=== PATIENT | male | born 1950 | race Caucasian/White ===

== ENCOUNTER 2024-02-23 02:02 | Emergency (ER) | payer OTHER, SELFPAY ==
[2024-02-23 04:12] VITALS: BMI 33.0
[2024-02-23 04:15] VITALS: BP 129/66
--- NOTE | 2024-02-23 04:28 | ED.GENMED ---
History of Present Illness
<ELAYNE Angel - Last Filed: 02/23/24 21:43>
General
Chief Complaint: Urinary Symptoms
Time Seen by Provider: 02/23/24 04:06
History of Present Illness
History of Present Illness:
A 74 yo male presents with a PMH of BPH, HTN, osteoarthritis to the ED for urinary retention x 2.5 day. He stated that he tried taking extra doses of tamsulosin to help with the urinary retention, but his urine stream has progressively slowed and
is now absent and is now causing suprapubic pain and distention. He describes a previous episode of urinary retention to which his urologist removed more than 2 L of urine via Matamoros catheterization. He denies CP, N/V/D/C, SOB, abdominal pain, PRATHER,
dizziness. He states that he has a prior history of BPH which is well controlled on his current medication. Osteoarthritis which is well controlled and HTN which is well controlled.
Past History
<ELAYNE Angel - Last Filed: 02/23/24 21:43>
Past History
ED Past Medical History: Cancer (Prostate), HTN and Other (Low back pain, Hematuria. 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 ); Negative Asthma, Hypercholesterolemia or NIDDM
ED Past Surgical History: Brain (1986 brain surgery ), Orthopedic (Back surgery with rods and screws, bilateral knee replacements, Left and right shoulder surgery, Left shoulder replacement) and Urological (Prostate biopsy, Lazar surgery)
Social History
Tobacco: Non-smoker (Cigar)
Alcohol: None
Drug: None
Personal:
Living: with family
Employment: Employed
Review of Systems
<ELAYNE Angel - Last Filed: 02/23/24 21:43>
Review of Systems
Constitutional: Denies fever, fatigue or chills
Respiratory: Denies cough
Phy Exam
<ELAYNE Angel - Last Filed: 02/23/24 21:43>
General Physical Exam
General Presentation: well appearing and no apparent distress
General age: appears stated age
General Skin: warm and dry
General Habitus: obese
General Mental: alert
Cardiovascular Exam
Cardiovascular Exam: regular rate/rhythm and normal peripheral pulses
Pulmonary Exam
Pulmonary Exam: lungs clear, no respiratory distress and chest non tender
Gastrointestinal Exam
Gastrointestinal Exam: normal bowel sounds, non tender and distended (epigastric distention and hard)
Palpation: left upper quadrant: No tenderness, left lower quadrant: No tenderness, right upper quadrant: No tenderness, right lower quadrant: No tenderness and generalized: No tenderness
Auscultation of Abdomen: normal
Genitourinary Exam Male
Exam Male: other (suprapubic tenderness relieved with matamoros catheterization. Initial output 600ml)
Neurological Exam
Neurological Exam: alert and oriented x3
Musculoskeletal Exam
Musculoskeletal Exam: neuro vasc intact
Skin Exam
Skin Exam: normal color, warm/dry and no rash
Course
<Ino Mclean [facility] - Last Filed: 02/23/24 21:43>
Orders/Labs/Results
Orders:
Orders
02/23/24 06:50
Matamoros Placement- Treatment ONCE
Reason for insertion: Outlet obstruction
02/23/24 07:02
CBI- Treatment PRN
Solution: ns
Irrigate to Clear?: Yes
Vital Signs
Initial and Last Documented VS:
Initial Vital Signs
BP
129/66
02/23/24 04:15
Last Documented Vital Signs
Temp Pulse Resp BP Pulse Ox
98.5 F 57 16 135/72 98
02/23/24 07:13 02/23/24 10:01 02/23/24 10:01 02/23/24 09:50 02/23/24 09:51
<Roly Leo, - Last Filed: 02/23/24 09:33>
Orders/Labs/Results
Orders:
Orders
02/23/24 06:50
Matamoros Placement- Treatment ONCE
Reason for insertion: Outlet obstruction
02/23/24 07:02
CBI- Treatment PRN
Solution: ns
Irrigate to Clear?: Yes
Vital Signs
Initial and Last Documented VS:
Initial Vital Signs
BP
129/66
02/23/24 04:15
Last Documented Vital Signs
Temp Pulse Resp BP Pulse Ox
98.5 F 57 16 135/72 98
02/23/24 07:13 02/23/24 10:01 02/23/24 10:01 02/23/24 09:50 02/23/24 09:51
<ELAYNE Angel - Last Filed: 02/23/24 21:43>
*Critical Care Note
Total Time (30-74mins, 75-104mins- exclusive of procedures): Not Applicable
<Roly Leo, - Last Filed: 02/23/24 09:33>
Update Note
Update Note:
9:30 AM care of patient was transitioned pending urology evaluation. Urology did evaluate at bedside and will follow-up as an outpatient. Plan per urology is discharged with Matamoros catheter
ED Attending Note
<ELAYNE Angel - Last Filed: 02/23/24 21:43>
-
Portions of this chart may have been created with voice recognition software.� Occasional wrong word or��sound alike� substitutions may have occurred due to the inherent limitations of voice recognition software.
Discharge Plan
Departure
Patient Disposition: Home (Routine Discharge)
Date of Disposition: 02/23/24
Time of Disposition: 09:32
Patient with high blood pressure during this ER visit?: No
Discharge Problem:
Hematuria
Instructions: How to Care for Your Matamoros Catheter, Male
Prescriptions:
No Action
Centrum Silver Men 1 EACH tablet
1 ea PO DAILY
lisinopril 20 MG tablet
20 mg PO DAILY Qty: 1 0RF
Rx Instructions:
HOLD if systolic blood pressure <130 while on post-operative pain meds
verapamil 240 MG tablet extended release
240 mg PO DAILY Qty: 1 0RF
Rx Instructions:
HOLD if systolic blood pressure <130 while on post-operative pain meds.
naproxen sodium [Aleve] 220 mg Tablet
220 mg PO DAILY
tadalafil 20 mg Tablet
20 mg PO DAILYPRN PRN (Reason: ed)
tamsulosin 0.4 mg capsule
0.4 mg PO DAILY
Referrals:
Gurjit Snyder MD [Active] -
Earnest Tomas DO [Family Provider] -
Activity Restrictions/Additional Instructions:
Please return for any worsening symptoms.
You may return at any time if you have further concerns.
Please follow up with the urologist.
Thank you for choosing [facility].
Interventions
Interventions:
*Risk Screen - Suicide Last Done: 02/23/24 04:18
*General Assessment Last Done: 02/23/24 04:18
*Neglect/Abuse Screening Last Done: 02/23/24 04:18
ED- Fall Risk Assessment Last Done: 02/23/24 04:12
*ED COVID-19 Vaccine History Last Done: 02/23/24 04:16
*Nursing Disposition Last Done: 02/23/24 10:01
ED-Male Genitourinary Assessment Last Done: 02/23/24 04:12
Discharge Date and Time
Discharge Date/Time: 02/23/24 10:02
Print Language: HUNGARIAN
--- NOTE | 2024-02-23 04:33 | DOWNTIME ---
There was a [employer] Experimental Physicist Downtime on 02/23/2024 from 0100 to 02/23/2024 at 0355. Downtime documentation of patient's care, including medication administrations, has been reconciled in the electronic record per guidelines. Refer to the
patient's paper chart under the miscellaneous tab to see printed paper medication records and downtime forms.
[2024-02-23 05:00] VITALS: BP 128/62
[2024-02-23 06:00] VITALS: BP 114/47
[2024-02-23 09:50] VITALS: BP 135/72
== END 2024-02-23 10:02 | disposition home or self-care (01) ==
LOC: EMR 02:02
PROVIDERS: EMERGENCY PHYSICIAN Student in an Organized Health Care Education/Training Program; FAMILY PHYSICIAN Internal Medicine
DX: R31.9 Hematuria, unspecified (principal); N40.1 Benign prostatic hyperplasia with lower urinary tract symptoms; R33.8 Other retention of urine; I10 Essential (primary) hypertension; Z85.46 Personal history of malignant neoplasm of prostate; Z86.73 Personal history of transient ischemic attack (TIA), and cerebral infarction without residual deficits
CPT/HCPCS: 51702; 99283

== ENCOUNTER 2024-02-27 07:53 | Emergency (ER) | payer OTHER, SELFPAY ==
[2024-02-27 07:54] VITALS: BP 165/120
--- NOTE | 2024-02-27 08:36 | ED.GENMED ---
History of Present Illness
General
Chief Complaint: Urinary Symptoms
Source: patient and records
Time Seen by Provider: 02/27/24 08:07
History of Present Illness
History of Present Illness:
74-year-old male with past medical history of BPH and urinary retention, had De Souza catheter removed by urology earlier this week, presenting back to the emergency department after being unable to urinate since Wednesday afternoon. Patient noticing
significant lower abdominal pain/discomfort and urge to urinate but unable to do so. Patient states that he is scheduled to have an MRI on the and then undergo likely procedure with urology due to the enlarged prostate. Patient denies any
fevers, chills, rigors, back or flank pain or nausea/vomiting. No other concerns
Past History
Past History
ED Past Medical History: Cancer (Prostate), HTN and Other (Low back pain, Hematuria. 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 ); Negative Asthma, Hypercholesterolemia or NIDDM
ED Past Surgical History: Brain (1986 brain surgery ), Orthopedic (Back surgery with rods and screws, bilateral knee replacements, Left and right shoulder surgery, Left shoulder replacement) and Urological (Prostate biopsy, Lazar surgery)
Social History
Tobacco: Non-smoker (Cigar)
Alcohol: None
Drug: None
Personal:
Living: with family
Employment: Employed
Review of Systems
Review of Systems
All Other Systems: ROS reviewed and negative except as documented in HPI and ROS
Phy Exam
Physical Exam
Physical Exam:
GENERAL: Alert , shaking, appears very uncomfortable
EYE: conjunctiva clear
Head: Normocephalic atraumatic
NECK: Supple,
ENT: mmm.
LUNGS: no acute respiratory distress
ABDOMEN: firm/distended suprapubic region
NEUROLOGICAL: Alert and oriented
SKIN: Warm and dry, skin intact.
MUSCULOSKELETAL: well perfused.
PSYCH: Normal and appropriate interaction.
Scores
Heart Failure Risk
Heart Failure Risk Score: Not Applicable
Heart Score for Chest Pain Patients
STEMI patient?: Not applicable
Withdrawal Assessment of Alcohol
Withdrawal Assessment Completed?: Not applicable
Course
Orders/Labs/Results
Orders:
Orders
02/27/24 08:07
De Souza Placement- Treatment ONCE
Reason for insertion: Acute Retention
02/27/24 08:40
Urinalysis Reflex To Culture Urgent
Date Specimen was Collected: 02/27/24
Time Specimen was Collected: 08:28
Urine Microscopic Reflex Cult Urgent
Urine Culture Urgent
JEY Source: U
Specimen Description:
Date Specimen was Collected: 02/27/24
Time Specimen was Collected: 08:28
02/27/24 08:43
Basic Metabolic Panel Urgent
02/27/24 10:55
Complete Blood Count/With Diff Urgent
Abnormal Lab Results
02/27/24 02/27/24
08:40 08:43
Chloride 109 H mmol/L
(98-107)
Carbon Dioxide 15 L mmol/L
(22-30)
BUN 41 H mg/dl
(9-20)
Glucose 103 H mg/dl
(70-99)
Ur Occult Blood Reflex 1+ A
(Negative)
Leukocyte Esterase Rfl 2+ A
(Negative)
Urine RBC 11-15 A /HPF
(0-2)
Urine WBC (Reflex) 30-40 A /HPF
(0-5)
Urine Bacteria (Reflex) Moderate A
(Negative)
02/27/24 08:43
Vital Signs
Initial and Last Documented VS:
Initial Vital Signs
Temp Pulse Resp BP Pulse Ox
97.9 F 60 22 165/120 94
02/27/24 07:54 02/27/24 07:54 02/27/24 07:54 02/27/24 07:54 02/27/24 07:54
Last Documented Vital Signs
Temp Pulse Resp BP Pulse Ox
97.9 F 55 16 132/67 94
02/27/24 07:54 02/27/24 09:10 02/27/24 09:10 02/27/24 09:10 02/27/24 07:54
MDM/Problems Addressed
Differential Diagnosis Includes:
Urinary retention secondary to BPH, urinary tract infection, acute kidney injury
MDM/Problems Addressed:
74-year-old male presenting emergency department for evaluation of urinary retention. History of similar requiring urinary De Souza catheter. On exam here today patient is significantly uncomfortable, unable to urinate over the last 36+ hours and
symptoms seem to be most suggestive of urinary retention. Bladder scan done which shows greater than 700mL. Will place De Souza catheter. Will discuss with urology with anticipated discharge home follow-up.
Chronic conditions affecting care: Other (BPH)
Acute Exacerbation and/or Progression of Chronic Illness: Other (BPH)
*Pulse Oximetry
Patient hypoxic: no
*Critical Care Note
Total Time (30-74mins, 75-104mins- exclusive of procedures): Not Applicable
Data Reviewed
Review of Other/Old Records Reveals: Labs and Records
Patient Management
Discussion with other providers: Template Inspector
Escalation/DeEscalation of care consider admission/obs:
Urology team made aware. Patient to have MRI wednesday as scheduled and urology will continue follow up. Stable for d/c home. Aware of return precautions
ED Attending Note
-
Portions of this chart may have been created with voice recognition software.� Occasional wrong word or��sound alike� substitutions may have occurred due to the inherent limitations of voice recognition software.
Discharge Plan
Departure
Patient Disposition: Home (Routine Discharge)
Date of Disposition: 02/27/24
Time of Disposition: 10:42
Patient with high blood pressure during this ER visit?: Yes
Discharge Problem:
Acute urinary retention
Instructions: Urinary retention - Discharge instructions
Prescriptions:
No Action
Centrum Silver Men 1 EACH tablet
1 ea PO DAILY
lisinopril 20 MG tablet
20 mg PO DAILY Qty: 1 0RF
Rx Instructions:
HOLD if systolic blood pressure <130 while on post-operative pain meds
verapamil 240 MG tablet extended release
240 mg PO DAILY Qty: 1 0RF
Rx Instructions:
HOLD if systolic blood pressure <130 while on post-operative pain meds.
naproxen sodium [Aleve] 220 mg Tablet
220 mg PO DAILY
tadalafil 20 mg Tablet
20 mg PO DAILYPRN PRN (Reason: ed)
tamsulosin 0.4 mg capsule
0.4 mg PO DAILY
Referrals:
Lucian Abad MD [Active] -
Earnest Tomas DO [Family Provider] -
Interventions
Interventions:
ED-Male Genitourinary Assessment Last Done: 02/27/24 09:11
Discharge Date and Time
Print Language: MONGOLIAN
[2024-02-27 09:10] VITALS: BP 132/67
[2024-02-27 09:26] LABS: Urine Albumin Trace (Neg - Trace); Urine Bilirubin Negative (Negative); Urine Character Slightly Cloudy (Clear); Urine Color Yellow; Urine Glucose Negative (Negative); Urine Ketone Negative (Negative); Urine Leukocyte 2+ (Negative); Urine Nitrite Negative (Negative); Urine Occult Blood 1+ (Negative); Urine Urobilinogen Negative (Neg - 1+)
[2024-02-27 09:58] LABS: Urine Mucus Few
[2024-02-27 10:00] LABS: Urine Bacteria Moderate (Negative); Urine White Cell 30-40 /HPF (0-5)
[2024-02-27 10:44] LABS: Blood Urea Nitrogen 41 mg/dl (9-20); Calcium 9.4 mg/dl (8.4-10.2); Carbon Dioxide 15 mmol/L (22-30); Chloride 109 mmol/L (98-107); Glucose 103 mg/dl (70-99); Potassium 4.8 mmol/L (3.5-5.1); Sodium 137 mmol/L (135-145); eGFR > 60.00
[2024-02-27 11:46] VITALS: BP 136/74
== END 2024-02-27 11:50 | disposition home or self-care (01) ==
LOC: EMR 07:53
PROVIDERS: Physician Assistant Medical; EMERGENCY PHYSICIAN Student in an Organized Health Care Education/Training Program; FAMILY PHYSICIAN Internal Medicine
DX: N40.1 Benign prostatic hyperplasia with lower urinary tract symptoms (principal); R33.8 Other retention of urine; I10 Essential (primary) hypertension; Z86.73 Personal history of transient ischemic attack (TIA), and cerebral infarction without residual deficits; Z85.46 Personal history of malignant neoplasm of prostate
CPT/HCPCS: 51702; 99283; 80048; 81003; 81015; 87086; 87147; 87186

== ENCOUNTER → 2024-03-01 06:13 | Emergency (ER) | payer OTHER, SELFPAY ==
[2024-03-01 06:17] VITALS: BP 150/64
--- NOTE | 2024-03-01 07:27 | ED.GENMED ---
History of Present Illness
General
Chief Complaint: Catheter/Tube Problem
Source: patient
Exam Limitations: none
Time Seen by Provider: 03/01/24 07:26
Nursing documentation reviewed up to this point in time: agreed with
History of Present Illness
History of Present Illness:
Patient is a 74-year-old male with past medical history of BPH urinary retention presents to the ER for evaluation of blood leaking around De Souza catheter. Patient was seen here on February 26 several days ago and had De Souza inserted and this morning
reports urine started coming out of the penis around the tube along with blood but was not getting to the collection bag. He does feel some pressure over his bladder. He denies any recent nausea vomiting fever chills. He is being followed by
[facility] of urology and presently is on finasteride and oxybutynin.
Past History
Past History
ED Past Medical History: Cancer (Prostate), HTN and Other (Low back pain, Hematuria. 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 ); Negative Asthma, Hypercholesterolemia or NIDDM
ED Past Surgical History: Brain (1986 brain surgery ), Orthopedic (Back surgery with rods and screws, bilateral knee replacements, Left and right shoulder surgery, Left shoulder replacement) and Urological (Prostate biopsy, Lazar surgery)
Social History
Tobacco: Non-smoker (Cigar)
Alcohol: None
Drug: None
Personal:
Living: with family
Employment: Employed
Review of Systems
Review of Systems
Allergies reviewed?: Yes
All Other Systems: ROS reviewed and negative except as documented in HPI and ROS
Constitutional: Reports no symptoms; Denies fever, fatigue or chills
Respiratory: Reports no symptoms
Cardiac: Reports no symptoms
ABD/GI: Reports other (pressure over bladder lower abd region )
: Reports other (De Souza catheter not draining noticing urine and blood tinged urine around tubing)
Musculoskeletal: Reports back pain (mild lower back discomfort )
Skin: Reports no symptoms
Neurological: Reports no symptoms
Psychiatric: Reports no symptoms
Phy Exam
General Physical Exam
General Presentation: no apparent distress
General age: appears stated age
General Skin: warm and dry
General Habitus: normal
General Mental: alert
General Hydration: appears well hydrated
Gastrointestinal Exam
Gastrointestinal Exam: soft and other (+ suprapubic tenderness )
Neurological Exam
Neurological Exam: alert and oriented x3
Musculoskeletal Exam
Musculoskeletal Exam: full ROM
Skin Exam
Skin Exam: normal color and warm/dry
Psychiatric Exam
Psychiatric Exam: normal mood/affect
Course
Orders/Labs/Results
Orders:
Orders
03/01/24 09:26
UA Reflex to Culture [Urinalysis Reflex To Culture] Urgent
Date Specimen was Collected: 03/01/24
Time Specimen was Collected: 09:25
Urine Microscopic Reflex Cult Urgent
Abnormal Lab Results
03/01/24
09:26
Ur Occult Blood Reflex 4+ A
(Negative)
Leukocyte Esterase Rfl Trace A
(Negative)
Urine RBC 21-25 A /HPF
(0-2)
Vital Signs
Initial and Last Documented VS:
Initial Vital Signs
Temp Pulse Resp BP Pulse Ox
98.9 F 70 22 150/64 98
03/01/24 06:17 03/01/24 06:17 03/01/24 06:17 03/01/24 06:17 03/01/24 06:17
Last Documented Vital Signs
Temp Pulse Resp BP Pulse Ox
98.9 F 76 18 148/74 98
03/01/24 06:17 03/01/24 09:00 03/01/24 09:00 03/01/24 09:00 03/01/24 09:00
MDM/Problems Addressed
Differential Diagnosis Includes:
not limited to: UTI, urinary retention De Souza catheter complication
MDM/Problems Addressed:
Patient presented with De Souaz catheter not properly draining.
Bladder scan shows 109 ml patient not retaining. Nurse irrigated catheter abdomen De Souza catheter has been draining normally since then. Blood in ua likely mild irritation no uti. to f/u with his urologist.
*Pulse Oximetry
Patient hypoxic: no
*Critical Care Note
Total Time (30-74mins, 75-104mins- exclusive of procedures): Not Applicable
ED Attending Note
-
Portions of this chart may have been created with voice recognition software.� Occasional wrong word or��sound alike� substitutions may have occurred due to the inherent limitations of voice recognition software.
Discharge Plan
Departure
Patient Disposition: Home (Routine Discharge)
Date of Disposition: 03/01/24
Time of Disposition: 10:49
Patient with high blood pressure during this ER visit?: Yes
Condition: Fair
Covid-19: Not Applicable
Discharge Problem:
Complication of De Souza catheter
Instructions: How to Care for Your De Souza Catheter, Male
Prescriptions:
No Action
Centrum Silver Men 1 EACH tablet
1 ea PO DAILY
lisinopril 20 MG tablet
20 mg PO DAILY Qty: 1 0RF
Rx Instructions:
HOLD if systolic blood pressure <130 while on post-operative pain meds
verapamil 240 MG tablet extended release
240 mg PO DAILY Qty: 1 0RF
Rx Instructions:
HOLD if systolic blood pressure <130 while on post-operative pain meds.
naproxen sodium [Aleve] 220 mg Tablet
220 mg PO DAILY
tadalafil 20 mg Tablet
20 mg PO DAILYPRN PRN (Reason: ed)
tamsulosin 0.4 mg capsule
0.4 mg PO DAILY
Referrals:
Lucian Abad MD [Active] -
Earnest Tomas DO [Family Provider] -
Activity Restrictions/Additional Instructions:
Follow up with your urologist as scheduled. Return if any worsening of symptoms.
Interventions
Interventions:
*Risk Screen - Suicide Last Done: 03/01/24 06:17
*General Assessment Last Done: 03/01/24 08:21
*Neglect/Abuse Screening Last Done: 03/01/24 08:21
*ED COVID-19 Vaccine History Last Done: 03/01/24 08:21
BK-Dqrkzh-Fryrdktgjs Assessment Last Done: 03/01/24 08:21
ED-Male Genitourinary Assessment Last Done: 03/01/24 08:24
Discharge Date and Time
Print Language: CITIZ[place]
[2024-03-01 08:25] VITALS: BMI 32.4
[2024-03-01 09:00] VITALS: BP 148/74
[2024-03-01 09:36] LABS: Urine Albumin Trace (Neg - Trace); Urine Bilirubin Negative (Negative); Urine Character Clear (Clear); Urine Color Yellow; Urine Glucose Negative (Negative); Urine Ketone Negative (Negative); Urine Leukocyte Trace (Negative); Urine Nitrite Negative (Negative); Urine Occult Blood 4+ (Negative); Urine Urobilinogen Negative (Neg - 1+)
[2024-03-01 10:12] LABS: Urine Amorphous Seen; Urine Red Blood Cell 21-25 /HPF (0-2); Urine Squamous Cell 0-2 /LPF (Few); Urine White Cell 0-2 /HPF (0-5)
== END | disposition home or self-care (01) ==
LOC: EMR 06:13
PROVIDERS: Nurse Practitioner; EMERGENCY PHYSICIAN Student in an Organized Health Care Education/Training Program; FAMILY PHYSICIAN Internal Medicine
DX: R31.9 Hematuria, unspecified (principal); N40.0 Benign prostatic hyperplasia without lower urinary tract symptoms; T83.038A Leakage of other urinary catheter, initial encounter; Y84.6 Urinary catheterization as the cause of abnormal reaction of the patient, or of later complication, without mention of misadventure at the time of the procedure; Y73.1 Therapeutic (nonsurgical) and rehabilitative gastroenterology and urology devices associated with adverse incidents; I10 Essential (primary) hypertension
CPT/HCPCS: 99283; 51798; 81003; 81015

== ENCOUNTER → 2024-03-01 19:24 | Outpatient (REF) | payer OTHER, SELFPAY | LOC: MRI 3T 19:24 | PROVIDERS: ATTENDING PHYSICIAN Surgery; FAMILY PHYSICIAN Internal Medicine | DX: C61 Malignant neoplasm of prostate (principal) | CPT/HCPCS: 72197; A9575 ==

== ENCOUNTER 2024-04-21 07:25 | Day surgery (SDC) | payer OTHER, SELFPAY ==
[2024-04-14 11:41] LABS: Hemoglobin 14.5 g/dL (13.0-18.0); Mean Corp Hgb Conc. 34.5 g/dL (33.0-37.0); Mean Corpuscular Hgb 29.4 pg (27.0-31.0); Mean Platelet Volume 9.9 fL (7.4-10.4); Platelet Count 262 10^3/uL (130-400); Red Blood Cell Count 4.94 10^6/uL (4.70-6.10); Red Cell Dist. Width 12.9 % (11.5-14.5); White Blood Cell Count 6.9 10^3/uL (4.8-10.8)
[2024-04-14 12:34] LABS: Blood Urea Nitrogen 35 mg/dl (9-20); Calcium 9.6 mg/dl (8.4-10.2); Carbon Dioxide 23 mmol/L (22-30); Chloride 106 mmol/L (98-107); Glucose 103 mg/dl (70-99); Potassium 4.6 mmol/L (3.5-5.1); Sodium 139 mmol/L (135-145); eGFR > 60.00
[2024-04-14 14:01] VITALS: BMI 33.2
[2024-04-21] VITALS (13 sets, daily range): BP systolic 132–180; BP diastolic 61–91; BMI 33.2
[2024-04-21] MEDS: NORMOSOL-R/PLASMALYTE-A 1000 IV (12:45)
--- NOTE | 2024-04-21 14:37 | W.IMMPOSTOP ---
Surgical Immed Post Op Note
-
Primary Surgeon: Jenniffer
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
Post-op Diagnosis: Same
Procedure Performed: urethral dilation, TURP
Anesthesia Type: LMA
Specimen / Cultures: Prostate chips/None
Estimated Blood Loss: Negligible
Drains: 22Fr 3-way catheter (30 cc in balloon)
Complications: None
Operative Findings: complete resection and vaporization of median lobe and right lateral lobe regrowth, excellent hemostasis in no flow, low pressure state
[2024-04-21] MEDS: DETROL LA 4 MG PO (15:30)
[2024-04-21] MEDS: DEMEROL 12.5 MG IV (15:55)
--- NOTE | 2024-04-21 16:28 | PTCARENOTE ---
Pt arrived to [facility] [address] from PACU s/p TURP. pt AAOx3, has 3-way CBI De Souza in place draining clear-yellow urine. Pt states no pain at this time. Oriented to call [place]field and room, bed locked and in lowest position, call mayfield within reach.
[2024-04-21] MEDS: TYLENOL 650 MG PO (21:57)
[2024-04-22 05:01] LABS: % Basophils 0.1 % (0-2); % Immature Granulocytes 0.3 % (0-0.5); % Lymphocytes 9.7 % (20.5-51.1); % Neutrophils 85.9 % (42.2-75.2); Absolute Lymphocytes 0.7 10^3/uL (1.2-3.4); Absolute Monocytes 0.3 10^3/uL (0.1-0.6); Absolute Neutrophils 6.4 10^3/uL (1.4-6.5); Hematocrit 40.4 % (39.0-52.0); Mean Corp Hgb Conc. 34.7 g/dL (33.0-37.0); Mean Corpuscular Hgb 28.9 pg (27.0-31.0); Mean Corpuscular Volume 83.3 fL (80.0-94.0); Mean Platelet Volume 9.8 fL (7.4-10.4); Nucleated Red Blood Cells % 0 % (-); Platelet Count 253 10^3/uL (130-400); Red Blood Cell Count 4.85 10^6/uL (4.70-6.10); Red Cell Dist. Width 12.6 % (11.5-14.5); White Blood Cell Count 7.5 10^3/uL (4.8-10.8)
[2024-04-22 05:18] LABS: Blood Urea Nitrogen 25 mg/dl (9-20); Calcium 9.5 mg/dl (8.4-10.2); Carbon Dioxide 21 mmol/L (22-30); Chloride 104 mmol/L (98-107); Estimated Creatinine Clearance 76 ml/min; Glucose 130 mg/dl (70-99); Potassium 4.7 mmol/L (3.5-5.1); Sodium 136 mmol/L (135-145); eGFR > 60.00
[2024-04-22 07:00] VITALS: BP 153/71
[2024-04-22] MEDS: CALAN EXTENDED RELEASE 240 MG PO (08:02)
[2024-04-22] MEDS: THERAGRAN 1 TABLET PO (08:02)
[2024-04-22] MEDS: ZESTRIL 20 MG PO (08:02)
[2024-04-22] MEDS: FLOMAX 0.4 MG PO (08:02)
--- NOTE | 2024-04-22 08:44 | W.PN.URO.CBU ---
Today's Communication / Plan
-
TOV
Discharge
Assessment / Plan
-
74M POD 1 s/p TURP
Trial of void this AM
Discharge when voiding
Diagnosis
-
Date of Service: April 22, 2024
-
Patient Diagnosis:
BPH
Post Op Day: s/p TURP
Subjective
-
no issues overnight
Objective
-
Vital Signs
Temp Pulse Resp BP Pulse Ox
97.9 F 59 18 153/71 95
04/22/24 07:00 04/22/24 07:00 04/22/24 07:00 04/22/24 07:00 04/22/24 07:00
Intake and Output
04/21/24 04/22/24 04/23/24
06:59 06:59 06:59
Output Total 2300 / 2300
Balance -2300 / -2300
Output:
True Urine Output from CBI 2300 / 2300
Laboratory Results
04/22/24 04:26
04/22/24 04:26
Physical Exam
-
General - well developed, well nourished, no acute distress
Chest - clear
De Souza in place, light pink off CBI
[2024-04-22 11:10] VITALS: BP 136/61
--- NOTE | 2024-04-22 12:49 | CM ---
CM met with pt bedside
Pt resides with his spouse is disabled in a 2[address] with 8 [address]
Full flight 2nd floor, home equipped with stairglide which spouse utilizes
Pt indep without any ADs- denies use of DMEs
Denies financial insecurities
PCP- Earnest Tomas
Rx- [facility] [address] [place]
Discharge home today, no needs pending void trial
Pt maintains indep in room
Discharge Disposition- home, no needs- will alert friend/Wan who will transport
[2024-04-22 16:54] VITALS: BP 164/76
== END 2024-04-22 17:15 | disposition home or self-care (01) ==
LOC: SDS 07:25
PROVIDERS: ATTENDING PHYSICIAN Surgery; FAMILY PHYSICIAN Internal Medicine
DX: N40.1 Benign prostatic hyperplasia with lower urinary tract symptoms (principal); N13.8 Other obstructive and reflux uropathy; R31.9 Hematuria, unspecified; N32.0 Bladder-neck obstruction
CPT/HCPCS: 52601; 88305; 36415; 80048; 85025; 85027; 93005